=== PATIENT | female | born 1930 | race Caucasian/White ===

== ENCOUNTER → 2016-08-20 | Outpatient (CLI) | payer MEDICARE, BC ==
[2014-01-05 21:41] VITALS: BP 185/86
[~2016-08-20] MED LIST: AMLODIPINE5 MG PO; BYSTOLIC20 MG PO; CALCIUM1 CAP PO; CHILDREN'S ASPI81 M1 PO; FISH OIL1 IU PO; LISINOPRIL/HCTZ1 TA2 PO; OXYBUTYNIN10 MG PO; PRAVASTATIN40 MG PO; VITAMIN D31000 I1 PO
== END ==
LOC: LAB 07:54
DX: Z00.00 Encounter for general adult medical examination without abnormal findings (principal); I10 Essential (primary) hypertension; E78.2 Mixed hyperlipidemia; R73.09 Other abnormal glucose; N32.81 Overactive bladder

== ENCOUNTER → 2016-09-10 | Outpatient (CLI) | payer MEDICARE, BC ==
[2014-01-05 21:41] VITALS: BP 185/86
== END ==
LOC: MAMMO 08:18
DX: Z12.31 Encounter for screening mammogram for malignant neoplasm of breast (principal); R92.2 Inconclusive mammogram
CPT/HCPCS: G0202

== ENCOUNTER → 2016-09-17 | Outpatient (CLI) | payer MEDICARE, BC ==
[2014-01-05 21:41] VITALS: BP 185/86
== END ==
LOC: MAMMO 12:18
DX: R92.8 Other abnormal and inconclusive findings on diagnostic imaging of breast (principal)

== ENCOUNTER → 2017-05-26 | Outpatient (CLI) | payer MEDICARE, BC ==
[2014-01-05 21:41] VITALS: BP 185/86
[2017-05-26 10:15] LABS: HEMATOCRIT 40.1 % (37.0-47.0); HEMOGLOBIN 13.4 g/dL (12.5-16.0); MEAN CELL VOLUME 94 fl (78-100); MEAN CORPUSCULAR HEMOGLOBIN 31 pg (27-31); MEAN CORPUSCULAR HGB CONC 33 g/dL (33-37); MEAN PLATELET VOLUME 10.3 fl (7.4-10.4); PLATELET COUNT 187 K/mm3 (130-400); RED BLOOD COUNT 4.29 M/mm3 (4.10-5.30); RED CELL DISTRIBUTION WIDTH 12.8 % (11.5-14.5); WHITE BLOOD COUNT 4.5 K/mm3 (4.8-10.8)
[2017-05-26 10:29] LABS: LYMPHOCYTE 38 % (20-51); MONOCYTE 14 % (3-10); NEUTROPHILS 46 % (42-75)
[2017-05-26 10:41] LABS: BUN/CREATININE RATIO 21.1 (6.0-26.0); CALCIUM 9.9 mg/dL (8.4-10.2); POTASSIUM 3.7 mmol/L (3.6-5.0); TOTAL BILIRUBIN 0.6 mg/dL (0.2-1.3)
== END ==
LOC: LAB 09:51
PROVIDERS: Nurse Practitioner Family
DX: I10 Essential (primary) hypertension (principal); R73.09 Other abnormal glucose; E78.2 Mixed hyperlipidemia; N32.81 Overactive bladder

== ENCOUNTER → 2018-08-19 | Outpatient (CLI) | payer MEDICARE, BC ==
[2014-01-05 21:41] VITALS: BP 185/86
[2018-08-19 10:25] LABS: ALBUMIN 4.1 g/dL (3.5-5.0); CALCIUM 9.9 mg/dL (8.4-10.2); POTASSIUM 3.7 mmol/L (3.6-5.0); TOTAL BILIRUBIN 0.7 mg/dL (0.2-1.3); TOTAL PROTEIN 7.1 g/dL (6.3-8.2)
[2018-08-19 10:28] LABS: HEMATOCRIT 39.7 % (37.0-47.0); HEMOGLOBIN 13.2 g/dL (12.5-16.0); MEAN CELL VOLUME 93 fl (78-100); MEAN CORPUSCULAR HEMOGLOBIN 31 pg (27-31); MEAN CORPUSCULAR HGB CONC 33 g/dL (33-37); MEAN PLATELET VOLUME 10.5 fl (7.4-10.4); PLATELET COUNT 185 K/mm3 (130-400); RED BLOOD COUNT 4.26 M/mm3 (4.10-5.30); RED CELL DISTRIBUTION WIDTH 12.9 % (11.5-14.5); WHITE BLOOD COUNT 4.3 K/mm3 (4.8-10.8)
[2018-08-19 11:40] LABS: LYMPHOCYTE 35 % (20-51); MONOCYTE 12 % (3-10); NEUTROPHILS 50 % (42-75)
== END ==
LOC: LAB 09:51
PROVIDERS: Family Medicine
DX: E78.5 Hyperlipidemia, unspecified (principal); I10 Essential (primary) hypertension; R73.09 Other abnormal glucose; R73.03 Prediabetes

== ENCOUNTER → 2018-08-23 | Outpatient (CLI) | payer MEDICARE, BC ==
[2014-01-05 21:41] VITALS: BP 185/86
== END ==
LOC: MAMMO 10:38
DX: Z12.31 Encounter for screening mammogram for malignant neoplasm of breast (principal)

== ENCOUNTER → 2018-10-07 | Outpatient (CLI) | payer MEDICARE, BC ==
[2014-01-05 21:41] VITALS: BP 185/86
[2018-10-07 14:53] LABS: ALBUMIN 3.7 g/dL (3.4-4.8)
[2018-10-07 14:54] LABS: POTASSIUM 3.8 mmol/L (3.5-5.1)
[2018-10-07 14:55] LABS: CALCIUM 10.3 mg/dL (8.3-10.5); URINE APPEARANCE HAZY; URINE BILIRUBIN NEGATIVE (NEGATIVE); URINE COLOR YELLOW; URINE GLUCOSE NEGATIVE (NEGATIVE); URINE KETONE NEGATIVE (NEGATIVE); URINE PROTEIN(semi-quant) TRACE mg/dL (NEGATIVE)
[2018-10-07 14:56] LABS: TOTAL PROTEIN 6.7 g/dL (6.2-8.1); URINE BLOOD 50 ery/uL (NEGATIVE); URINE LEUKOCYTE ESTERASE 1+ (NEGATIVE); URINE NITRATE NEGATIVE (NEGATIVE); URINE UROBILINOGEN NORMAL (NORMAL)
[2018-10-07 14:58] LABS: TOTAL BILIRUBIN 0.4 mg/dL (0.2-1.2)
== END ==
LOC: LAB 14:02
PROVIDERS: Family Medicine
DX: N28.9 Disorder of kidney and ureter, unspecified (principal); N39.0 Urinary tract infection, site not specified

== ENCOUNTER 2019-09-27 10:11 | Emergency (ER) | payer MEDICARE, BC ==
[~2019-09-27 10:11] MED LIST changes: -METOPROLOL SUC100 M1 PO; -ZESTORETIC 10-1 EACH PO
[2019-09-27] MEDS ORDERED: METOPROLOL SUC100 M1 PO (10:24)
[2019-09-27] MEDS ORDERED: ZESTORETIC 10-1 EACH PO (12:27)
[2019-09-27 12:38] VITALS: BP 163/63
== END 2019-09-27 12:37 | disposition home or self-care (01) ==
LOC: ED 10:11
DX: I16.0 Hypertensive urgency (principal); I10 Essential (primary) hypertension; Z87.442 Personal history of urinary calculi

== ENCOUNTER → 2019-09-27 | Outpatient (CLI) | payer MEDICARE, BC ==
[2014-01-05 21:41] VITALS: BP 185/86
[~2019-09-27] MED LIST changes: +METOPROLOL SUC100 M1 PO; +ZESTORETIC 10-1 EACH PO
== END ==
LOC: MAMMO 09:07
DX: Z12.31 Encounter for screening mammogram for malignant neoplasm of breast (principal)

== ENCOUNTER → 2020-07-30 | Outpatient (CLI) | payer MEDICARE, BC ==
[~2020-07-30] MED LIST changes: +METOPROLOL SUC100 M1 PO; +ZESTORETIC 10-1 EACH PO
== END ==
LOC: RAD 10:38
DX: M17.12 Unilateral primary osteoarthritis, left knee (principal); M11.261 Other chondrocalcinosis, right knee; R07.9 Chest pain, unspecified

== ENCOUNTER 2020-08-13 16:31 | Emergency (ER) | payer MEDICARE, BC ==
[2020-08-13 17:22] LABS: BASO # 0.1 (0.02-0.10); EOS # 0.5 (0.04-0.40); EOS % 5.9 % (1.0-5.0); HEMATOCRIT 41.5 % (37.0-47.0); LYMPH# 1.6 (1.50-4.00); MEAN CELL VOLUME 93 fl (78-100); MEAN CORPUSCULAR HEMOGLOBIN 31 pg (27-31); MEAN CORPUSCULAR HGB CONC 34 g/dL (33-37); MEAN PLATELET VOLUME 9.8 fl (7.4-10.4); MONO # 0.9 (0.20-0.80); NEU # 5.4 (1.40-6.50); PLATELET COUNT 208 K/mm3 (130-400); RED BLOOD COUNT 4.48 M/mm3 (4.10-5.30); RED CELL DISTRIBUTION WIDTH 13.3 % (11.5-14.5); WHITE BLOOD COUNT 8.5 K/mm3 (4.8-10.8)
[2020-08-13 17:36] LABS: ALBUMIN 3.9 g/dL (3.4-4.8); POTASSIUM 3.9 mmol/L (3.5-5.1); SODIUM 140 mmol/L (136-145)
[2020-08-13 17:37] LABS: CALCIUM 9.2 mg/dL (8.3-10.5)
[2020-08-13 17:39] LABS: GLUCOSE 121 mg/dL (65-105)
[2020-08-13 17:40] LABS: CARBON DIOXIDE 24 mmol/L (23-31); TOTAL BILIRUBIN 0.6 mg/dL (0.2-1.2)
[2020-08-13 17:44] LABS: AST-SGOT 13 U/L (5-34)
[2020-08-13 17:45] LABS: ALT/SGPT 13 U/L (0-55)
[2020-08-13 17:53] LABS: TROPONIN-I < 0.03 ng/mL (<0.030)
[2020-08-13 21:24] VITALS: BP 157/70
== END 2020-08-13 21:46 | disposition home or self-care (01) ==
LOC: ED 16:31
PROVIDERS: Nurse Practitioner Family
DX: I10 Essential (primary) hypertension (principal); Z87.891 Personal history of nicotine dependence; Z79.899 Other long term (current) drug therapy

== ENCOUNTER → 2020-09-04 | Outpatient (CLI) | payer MEDICARE, BC ==
[2020-08-13 21:24] VITALS: BP 157/70
== END ==
LOC: VAS 10:49 → RAD 11:00
DX: R07.9 Chest pain, unspecified (principal)

== ENCOUNTER → 2020-09-30 | Outpatient (CLI) | payer MEDICARE, BC ==
[2020-09-30 11:18] LABS: BASO # 0.03 (0.02-0.10); EOS # 0.13 (0.04-0.40); EOS % 2.7 % (1.0-5.0); HEMATOCRIT 39.8 % (37.0-47.0); HEMOGLOBIN 13.4 g/dL (12.5-16.0); LYMPH# 1.58 (1.50-4.00); MEAN CELL VOLUME 93 fl (78-100); MEAN CORPUSCULAR HEMOGLOBIN 31 pg (27-31); MEAN CORPUSCULAR HGB CONC 34 g/dL (33-37); MEAN PLATELET VOLUME 9.7 fl (7.4-10.4); MONO # 0.62 (0.20-0.80); NEU # 2.46 (1.40-6.50); PLATELET COUNT 196 K/mm3 (130-400); WHITE BLOOD COUNT 4.8 K/mm3 (4.8-10.8)
[2020-09-30 11:31] LABS: ALBUMIN 3.9 g/dL (3.4-4.8); POTASSIUM 3.7 mmol/L (3.5-5.1)
[2020-09-30 11:32] LABS: CALCIUM 9.5 mg/dL (8.3-10.5)
[2020-09-30 11:35] LABS: TOTAL BILIRUBIN 0.5 mg/dL (0.2-1.2)
== END ==
LOC: LAB 10:56
PROVIDERS: Family Medicine
DX: Z00.00 Encounter for general adult medical examination without abnormal findings (principal); E78.5 Hyperlipidemia, unspecified; R73.03 Prediabetes; M85.80 Other specified disorders of bone density and structure, unspecified site